=== PATIENT | female | born 1965 | race Caucasian/White ===

== ENCOUNTER → 2018-06-18 | Outpatient (CLI) | payer OTHER ==
--- NOTE | 2018-06-18 12:37 | XR ---
EXAMINATION TYPE: XR foot complete LT DATE OF EXAM: 06/18/2018 CLINICAL HISTORY: Lateral left foot pain after twisting injury days ago. TECHNIQUE: Frontal, lateral, and oblique images of the left foot are obtained. COMPARISON: None FINDINGS: There is no acute fracture/dislocation evident in the left foot. The joint spaces in the left foot appear within normal limits. The overlying soft tissue appears unremarkable. IMPRESSION: There is no acute fracture or dislocation in the left foot.
== END | disposition home or self-care (01) ==
LOC: RADXRMAIN 12:06
PROVIDERS: ATTEND Emergency Medicine
DX: S93.602A Unspecified sprain of left foot, initial encounter (principal)

== ENCOUNTER 2021-11-22 06:06 | Emergency (ER) | payer BC, OTHER ==
[2021-11-22 06:14] VITALS: TEMP 97.9
[2021-11-22 06:16] LABS: Glucose,Whole Blood 193 mg/dL (75-99)
[2021-11-22] MEDS ORDERED: SODIUM CHLORIDE 0.9% 1,000 ML IV STA (06:19)
--- NOTE | 2021-11-22 06:22 | ED ---
Syncope HPI - General Chief Complaint: Syncope Stated Complaint: Syncope Time Seen by Provider: 11/22/21 06:18 Source: patient, EMS Mode of arrival: EMS Limitations: altered mental status - History of Present Illness Initial Comments: This patient is a 56-year-old woman brought by ambulance after she was found unresponsive by her family. EMS was called after patient was found lying on the floor and unresponsive. The patient's family reportedly had did brief period of CPR. When EMS arrived they did find the patient to be breathing and have pulses. On arrival here, the patient is alert and responsive but does not remember what had happened prior to her arrival here. The last admission clearly Remmers his last night. The patient is denying symptoms currently. She is not having headache, neck pain, chest, back or abdomen pain. No dyspnea. No nausea or vomiting. MD Complaint: loss of consciousness -: minutes(s) Prodromal Symptoms: none Witnessed: no Injuries Sustained Associated with Event: None Current Symptoms: back to baseline Context: other Treatments Prior to Arrival: CPR - Related Data Home Medications Medication Instructions Recorded Confirmed No Known Home Medications 11/22/21 11/22/21 Allergies Allergy/AdvReac Type Severity Reaction Status Date / Time No Known Allergies Allergy Verified 11/22/21 07:19 Review of Systems ROS Statement: Those systems with pertinent positive or pertinent negative responses have been documented in the HPI. ROS Other: All systems not noted in ROS Statement are negative. Limitations: ROS unobtainable due to patients medical condition Constitutional: Denies: fever Respiratory: Denies: cough, dyspnea Cardiovascular: Reports: syncope. Denies: chest pain Gastrointestinal: Denies: abdominal pain, nausea, vomiting Musculoskeletal: Denies: back pain Neurological: Reports: confusion. Denies: headache, weakness Past Medical History Past Medical History: No Reported History History of Any Multi-Drug Resistant Organisms: None Reported Additional Past Surgical History / Comment(s): Mary Lou walters. Smoking Status: Current every day smoker Past Alcohol Use History: None Reported Past Drug Use History: None Reported General Exam General appearance: alert, in no apparent distress Head exam: Present: atraumatic, normocephalic, normal inspection Eye exam: Present: normal appearance, PERRL, EOMI. Absent: scleral icterus, conjunctival injection, nystagmus ENT exam: Present: normal oropharynx Neck exam: Present: normal inspection, full ROM Respiratory exam: Present: normal lung sounds bilaterally. Absent: respiratory distress, wheezes, rales, rhonchi, stridor Cardiovascular Exam: Present: regular rate, normal rhythm, normal heart sounds. Absent: systolic murmur, diastolic murmur, rubs, gallop GI/Abdominal exam: Present: soft. Absent: distended, tenderness, guarding, rebound, rigid, mass Extremities exam: Present: normal inspection, normal capillary refill. Absent: pedal edema, calf tenderness Back exam: Present: normal inspection. Absent: CVA tenderness (R), CVA tenderness (L), vertebral tenderness Neurological exam: Present: alert, CN II-XII intact. Absent: oriented X3 (Patient is oriented to person, recognizes she is at the hospital but could not recall the date.), motor sensory deficit Skin exam: Present: warm, dry, intact, normal color. Absent: rash Course Vital Signs 11/22/21 11/22/21 11/22/21 06:08 06:35 07:00 Temperature 97.9 F Pulse Rate 80 70 75 Respiratory 18 12 13 Rate Blood Pressure 96/56 93/56 101/55 O2 Sat by Pulse 99 100 Oximetry 11/22/21 11/22/21 07:10 08:08 Temperature Pulse Rate 75 55 L Respiratory 13 16 Rate Blood Pressure 101/55 93/54 O2 Sat by Pulse 100 96 Oximetry EKG Findings - EKG Results: EKG: interpreted by DESTINEY, sinus rhythm (79 bpm), normal axis, normal ST/T - Blocks, [place], Hypertrophy, ST Abn: AV and intraventricular conduction: left bundle branch block (fixed/intermittent, complete/incomplete) Medical Decision Making - Medical Decision Making Patient is 56-year-old woman brought for suspected syncopal episode at home. Patient is found to have subarachnoid hemorrhage. Discussed with patient that she must be transferred to facility with neurosurgery available and she is agreeable with this plan. Case discussed with Dr. De La Cruz at [facility] who will accept transfer. - Lab Data Result diagrams: 11/22/21 06:19 11/22/21 06:19 Lab Results 11/22/21 11/22/21 11/22/21 Range/Units 06:15 06:19 06:19 WBC 6.7 (3.8-10.6) k/uL RBC 4.47 (3.80-5.40) m/uL Hgb 14.3 (11.4-16.0) gm/dL Hct 43.6 (34.0-46.0) % MCV 97.4 (80.0-100.0) fL MCH 32.0 (25.0-35.0) pg MCHC 32.9 (31.0-37.0) g/dL RDW 12.1 (11.5-15.5) % Plt Count 303 (150-450) k/uL MPV 8.2 Neutrophils % 61 % Lymphocytes % 30 % Monocytes % 4 % Eosinophils % 3 % Basophils % 0 % Neutrophils # 4.1 (1.3-7.7) k/uL Lymphocytes # 2.0 (1.0-4.8) k/uL Monocytes # 0.3 (0-1.0) k/uL Eosinophils # 0.2 (0-0.7) k/uL Basophils # 0.0 (0-0.2) k/uL PT 11.1 (9.0-12.0) sec INR 1.0 (<1.2) APTT 23.0 (22.0-30.0) sec D-Dimer 1.61 H (<0.60) mg/L FEU Sodium (137-145) mmol/L Potassium (3.5-5.1) mmol/L Chloride (98-107) mmol/L Carbon Dioxide (22-30) mmol/L Anion Gap mmol/L BUN (7-17) mg/dL Creatinine (0.52-1.04) mg/dL Est GFR (CKD-EPI)AfAm (>60 ml/min/1.73 sqM) Est GFR (CKD-EPI)NonAf (>60 ml/min/1.73 sqM) Glucose (74-99) mg/dL POC Glucose (mg/dL) 193 H (75-99) mg/dL POC Glu Registered Art Therapist ID Gerardo Roldan Calcium (8.4-10.2) mg/dL Magnesium (1.6-2.3) mg/dL Total Bilirubin (0.2-1.3) mg/dL AST (14-36) U/L ALT (4-34) U/L Alkaline Phosphatase (38-126) U/L Troponin I (0.000-0.034) ng/mL Total Protein (6.3-8.2) g/dL Albumin (3.5-5.0) g/dL Urine Color Urine Appearance (Clear) Urine pH (5.0-8.0) Ur Specific [place] (1.001-1.035) Urine Protein (Negative) Urine Glucose (UA) (Negative) Urine Ketones (Negative) Urine Blood (Negative) Urine Nitrite (Negative) Urine Bilirubin (Negative) Urine Urobilinogen (<2.0) mg/dL Ur Leukocyte Esterase (Negative) Urine RBC (0-5) /hpf Urine WBC (0-5) /hpf Urine Mucus (None) /hpf Coronavirus (PCR) (Not Detectd) 11/22/21 11/22/21 11/22/21 Range/Units 06:19 06:19 06:19 WBC (3.8-10.6) k/uL RBC (3.80-5.40) m/uL Hgb (11.4-16.0) gm/dL Hct (34.0-46.0) % MCV (80.0-100.0) fL MCH (25.0-35.0) pg MCHC (31.0-37.0) g/dL RDW (11.5-15.5) % Plt Count (150-450) k/uL MPV Neutrophils % % Lymphocytes % % Monocytes % % Eosinophils % % Basophils % % Neutrophils # (1.3-7.7) k/uL Lymphocytes # (1.0-4.8) k/uL Monocytes # (0-1.0) k/uL Eosinophils # (0-0.7) k/uL Basophils # (0-0.2) k/uL PT (9.0-12.0) sec INR (<1.2) APTT (22.0-30.0) sec D-Dimer (<0.60) mg/L FEU Sodium 140 (137-145) mmol/L Potassium 4.8 (3.5-5.1) mmol/L Chloride 113 H (98-107) mmol/L Carbon Dioxide 19 L (22-30) mmol/L Anion Gap 8 mmol/L BUN 20 H (7-17) mg/dL Creatinine 0.83 (0.52-1.04) mg/dL Est GFR (CKD-EPI)AfAm >90 (>60 ml/min/1.73 sqM) Est GFR (CKD-EPI)NonAf 78 (>60 ml/min/1.73 sqM) Glucose 207 H (74-99) mg/dL POC Glucose (mg/dL) (75-99) mg/dL POC Glu Registered Art Therapist ID Calcium 8.4 (8.4-10.2) mg/dL Magnesium 2.0 (1.6-2.3) mg/dL Total Bilirubin 0.8 (0.2-1.3) mg/dL AST 45 H (14-36) U/L ALT 33 (4-34) U/L Alkaline Phosphatase 60 (38-126) U/L Troponin I <0.012 (0.000-0.034) ng/mL Total Protein 6.4 (6.3-8.2) g/dL Albumin 3.4 L (3.5-5.0) g/dL Urine Color Light Yellow Urine Appearance Clear (Clear) Urine pH 5.0 (5.0-8.0) Ur Specific [place] 1.039 H (1.001-1.035) Urine Protein 1+ H (Negative) Urine Glucose (UA) 4+ H (Negative) Urine Ketones Negative (Negative) Urine Blood Trace H (Negative) Urine Nitrite Negative (Negative) Urine Bilirubin Negative (Negative) Urine Urobilinogen <2.0 (<2.0) mg/dL Ur Leukocyte Esterase Negative (Negative) Urine RBC 1 (0-5) /hpf Urine WBC 1 (0-5) /hpf Urine Mucus Rare H (None) /hpf Coronavirus (PCR) (Not Detectd) 11/22/21 Range/Units 06:57 WBC (3.8-10.6) k/uL RBC (3.80-5.40) m/uL Hgb (11.4-16.0) gm/dL Hct (34.0-46.0) % MCV (80.0-100.0) fL MCH (25.0-35.0) pg MCHC (31.0-37.0) g/dL RDW (11.5-15.5) % Plt Count (150-450) k/uL MPV Neutrophils % % Lymphocytes % % Monocytes % % Eosinophils % % Basophils % % Neutrophils # (1.3-7.7) k/uL Lymphocytes # (1.0-4.8) k/uL Monocytes # (0-1.0) k/uL Eosinophils # (0-0.7) k/uL Basophils # (0-0.2) k/uL PT (9.0-12.0) sec INR (<1.2) APTT (22.0-30.0) sec D-Dimer (<0.60) mg/L FEU Sodium (137-145) mmol/L Potassium (3.5-5.1) mmol/L Chloride (98-107) mmol/L Carbon Dioxide (22-30) mmol/L Anion Gap mmol/L BUN (7-17) mg/dL Creatinine (0.52-1.04) mg/dL Est GFR (CKD-EPI)AfAm (>60 ml/min/1.73 sqM) Est GFR (CKD-EPI)NonAf (>60 ml/min/1.73 sqM) Glucose (74-99) mg/dL POC Glucose (mg/dL) (75-99) mg/dL POC Glu Registered Art Therapist ID Calcium (8.4-10.2) mg/dL Magnesium (1.6-2.3) mg/dL Total Bilirubin (0.2-1.3) mg/dL AST (14-36) U/L ALT (4-34) U/L Alkaline Phosphatase (38-126) U/L Troponin I (0.000-0.034) ng/mL Total Protein (6.3-8.2) g/dL Albumin (3.5-5.0) g/dL Urine Color Urine Appearance (Clear) Urine pH (5.0-8.0) Ur Specific [place] (1.001-1.035) Urine Protein (Negative) Urine Glucose (UA) (Negative) Urine Ketones (Negative) Urine Blood (Negative) Urine Nitrite (Negative) Urine Bilirubin (Negative) Urine Urobilinogen (<2.0) mg/dL Ur Leukocyte Esterase (Negative) Urine RBC (0-5) /hpf Urine WBC (0-5) /hpf Urine Mucus (None) /hpf Coronavirus (PCR) Not Detected (Not Detectd) Critical Care Time Critical Care Time: Yes (30 minutes) Disposition Clinical Impression: Subarachnoid hemorrhage Disposition: OTHER INSTITUTION NOT DEFINED Condition: Serious Is patient prescribed a controlled substance at d/c from ED?: No Referrals: None,Stated [Primary Care Provider] - 1-2 days - Out of Hospital Transfer - Req. Specs Out of Hospital Transfer - Requested Specifics: Other Emergency Center ([facility])
[2021-11-22 06:32] LABS: Basophils % (A) 0 %; Eosinophils # (A) 0.2 k/uL (0-0.7); Eosinophils % (A) 3 %; HCT 43.6 % (34.0-46.0); HGB 14.3 gm/dL (11.4-16.0); Lymphocytes % (A) 30 %; MCHC 32.9 g/dL (31.0-37.0); MCV 97.4 fL (80.0-100.0); Mean Platelet Volume 8.2; Monocytes # (A) 0.3 k/uL (0-1.0); Monocytes % (A) 4 %; Neutrophils # (A) 4.1 k/uL (1.3-7.7); Neutrophils % (A) 61 %; Platelet Count 303 k/uL (150-450); RBC 4.47 m/uL (3.80-5.40); RDW 12.1 % (11.5-15.5); WBC 6.7 k/uL (3.8-10.6)
--- NOTE | 2021-11-22 06:42 | CT ---
EXAMINATION TYPE: CT brain wo con DATE OF EXAM: 11/22/2021 COMPARISON: None HISTORY: syncope CT DLP: 1055.4 mGycm Automated exposure control for dose reduction was used. Images of the brain obtained without contrast. There is large amount of acute subarachnoid hemorrhage at the [place] and also extending int o the sylvian fissures bilaterally. There is small amount of hemorrhage in the fourth ventricle. Ther e is hemorrhage around the brainstem and outlining the cerebral peduncles. There is some fullness of the temporal horns of the lateral ventricles. The calvarium is intact. IMPRESSION: There is large amount of acute subarachnoid hemorrhage as above. Origin of the hemorrhage is not jim r. There is more concentrated hemorrhage at the left anterior [place] and also the basilar t ip. There is some minimal hydrocephalus and prominence of the temporal horns of the lateral ventricles. M inimal hemorrhage in the fourth ventricle. This exam was discussed with emergency room staff at 6:40 AM.
--- NOTE | 2021-11-22 06:43 | XR ---
EXAMINATION TYPE: XR chest 1V portable DATE OF EXAM: 11/22/2021 COMPARISON: NONE HISTORY: Syncope TECHNIQUE: Single view FINDINGS: Heart is normal. Lungs are clear of consolidation. There are no hilar masses. Costophrenic angles are clear. There are chest leads. Bony thorax is intact IMPRESSION: No active cardiopulmonary disease.
[2021-11-22 06:50] LABS: Prothrombin Time 11.1 sec (9.0-12.0)
[2021-11-22 07:00] LABS: ALT 33 U/L (4-34); AST 45 U/L (14-36); African American GFR (CKD) >90 (>60 ml/min/1.73 sqM); Albumin 3.4 g/dL (3.5-5.0); Alkaline Phosphatase 60 U/L (38-126); Anion Gap 8 mmol/L; Blood Urea Nitrogen 20 mg/dL (7-17); Calcium 8.4 mg/dL (8.4-10.2); Carbon Dioxide 19 mmol/L (22-30); Chloride 113 mmol/L (98-107); Glucose 207 mg/dL (74-99); Non-African American GFR(CKD) 78 (>60 ml/min/1.73 sqM); Sodium 140 mmol/L (137-145); Total Bilirubin 0.8 mg/dL (0.2-1.3); Total Protein 6.4 g/dL (6.3-8.2)
[2021-11-22 07:04] LABS: Potassium 4.8 mmol/L (3.5-5.1)
--- NOTE | 2021-11-22 07:09 | CT ---
EXAMINATION TYPE: CT angio COW [place] DATE OF EXAM: 11/22/2021 COMPARISON: None HISTORY: Abn CT brain, syncope CT DLP: 718 mGycm Automated exposure control for dose reduction was used. CONTRAST: Performed with IV Contrast, patient injected with 100 mL of Isovue 370. Images obtained from the skull base to the vertex of the brain without IV contrast. There are Three-D postprocessed images. There is arterial flow in the anterior middle and posterior cerebral arteries. There is arterial flow in the vertebrobasilar artery system. There is rounded 16 x 10 mm enhancing mass at the [place] on the left side. 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 Th ere is minimal calcification in the wall. There is no evidence of intracranial arterial stenosis. The re is normal enhancement of the venous sinuses. 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
[2021-11-22 07:32] LABS: Appearance,Urine Clear (Clear); Bilirubin,Urine Negative (Negative); Blood,Urine Trace (Negative); Color,Urine Light Yellow; Glucose,Urine (UA) 4+ (Negative); Ketones,Urine Negative (Negative); Leukocyte Esterase,Urine Negative (Negative); Mucus,Urine Rare /hpf; Nitrite,Urine Negative (Negative); Protein,Urine 1+ (Negative); RBC,Urine 1 /hpf (0-5); Specific Gravity,Urine 1.039 (1.001-1.035); Urobilinogen,Urine <2.0 mg/dL (<2.0); WBC,Urine 1 /hpf (0-5)
[2021-11-22] MEDS ORDERED: fentaNYL (PF) 50 MCG/ML 2 ML AMP IVP STA (07:52)
[2021-11-22 08:11] VITALS: BP 93/54; PULSE 55; RESP 16
== END 2021-11-22 08:12 | disposition short-term general hospital (02) ==
LOC: EC 06:06
DX: I60.9 Nontraumatic subarachnoid hemorrhage, unspecified (principal); F17.200 Nicotine dependence, unspecified, uncomplicated; Z20.822 Contact with and (suspected) exposure to COVID-19
CPT/HCPCS: 99291; 96374; 36415; 93005; 85379; 80053; 83735; 84484; 85025; 85610; 85730; 81001; 87635; 71045; 70496; 70450; J3010; Q9967

== ENCOUNTER 2022-06-27 15:54 | Emergency (ER) | payer BC ==
[2022-06-27 16:20] VITALS: RESP 16; TEMP 98.7
--- NOTE | 2022-06-27 16:58 | ED ---
General Adult HPI - General Chief complaint: Abdominal Pain Stated complaint: Peg Tube replacement Time Seen by Provider: 06/27/22 16:14 Source: EMS, RN notes reviewed, old records reviewed Mode of arrival: EMS Limitations: language barrier, physical limitation - History of Present Illness Initial comments: 57-year-old female presenting with peg tube issue. Patient had been sent to the emergency department with a cracked PEG tube. Uncertain of the duration. Patient is nonverbal and unable to contribute to the history. By review the medical record. Patient does have a previous history of subarachnoid hemorrhage. This was in November of this year. - Related Data Home Medications Medication Instructions Recorded Confirmed No Known Home Medications 11/22/21 11/22/21 Allergies Allergy/AdvReac Type Severity Reaction Status Date / Time No Known Allergies Allergy Verified 11/22/21 07:19 Review of Systems ROS Statement: Those systems with pertinent positive or pertinent negative responses have been documented in the HPI. ROS Other: All systems not noted in ROS Statement are negative. Past Medical History Past Medical History: No Reported History History of Any Multi-Drug Resistant Organisms: None Reported Additional Past Surgical History / Comment(s): Mary Lou walters. Smoking Status: Current every day smoker Past Alcohol Use History: None Reported Past Drug Use History: None Reported General Exam Limitations: language barrier, physical limitation General appearance: alert Head exam: Present: normocephalic Eye exam: Present: normal appearance Neck exam: Absent: tenderness Respiratory exam: Present: normal lung sounds bilaterally. Absent: respiratory distress, wheezes Cardiovascular Exam: Present: regular rate, normal rhythm GI/Abdominal exam: Present: soft, other (No erythema surrounding the ostomy no tenderness, the PEG tube is cracked along its length). Absent: distended, tenderness Neurological exam: Absent: oriented X3 Skin exam: Present: warm, dry, intact Course Vital Signs 06/27/22 16:15 Temperature 98.7 F Pulse Rate 85 Respiratory 16 Rate Blood Pressure 110/73 O2 Sat by Pulse 95 Oximetry Procedures - Feeding Tube Replacement Reason for Replacement: not functioning/damaged Initial Tube Inserted: greater than 2 weeks Type of Tube: gastrostomy Use of Tube: medications and feeding Insertion Site Prior to Procedure: clean Tube Used for Reinsertion: other (replaced) Vincentian Tube Size (F): 18 Balloon Size (mls): 10 Verification of Placement: gastrografin injection Tube Secured by: tape/dressing Patient Tolerated Procedure: well Medical Decision Making - Medical Decision Making 57-year-old female with a cracked PEG tube. Tube appears quite old. It is removed in the emergency department replaced with a 18-Vincentian gastric tube, x- ray to confirm placement. Disposition Clinical Impression: PEG tube malfunction Disposition: HOME SELF-CARE Condition: Fair Instructions (If sedation given, give patient instructions): PEG Tube Insertion (DC) Is patient prescribed a controlled substance at d/c from ED?: No Referrals: None,Stated [REFERRING] - 1-2 days Time of Disposition: 17:51
--- NOTE | 2022-06-27 17:58 | XR ---
EXAMINATION TYPE: XR KUB DATE OF EXAM: 06/27/2022 COMPARISON: NONE HISTORY: Check tube placement TECHNIQUE: Single view FINDINGS: Contrast was injected 50 mL Isovue into the gastrostomy tube. There is opacification of the stomach. No evidence of extravasation. Bowel gas pattern is nonacute. IMPRESSION: Gastrostomy tube is in good position.
--- NOTE | 2022-06-27 18:00 | XR ---
EXAMINATION TYPE: XR KUB DATE OF EXAM: 06/27/2022 COMPARISON: NONE HISTORY: Check tube placement TECHNIQUE: Single view FINDINGS: There is a gastrostomy tube over the greater curvature of the stomach. There is no contrast for verification. IMPRESSION: Nonacute bowel gas pattern. Gastrostomy tube is overlying the greater curvature of the st omach.
[2022-06-27 18:56] VITALS: BP 126/77; PULSE 92
== END 2022-06-27 19:58 | disposition home or self-care (01) ==
LOC: EC 15:54
DX: K94.23 Gastrostomy malfunction (principal); F17.200 Nicotine dependence, unspecified, uncomplicated
CPT/HCPCS: 74018; 43753; 99283; Q9967

== ENCOUNTER 2022-12-03 07:01 | Emergency (ER) | payer BC, OTHER ==
[2022-12-03 07:15] VITALS: RESP 18; TEMP 97.1
--- NOTE | 2022-12-03 08:10 | ED ---
Recheck HPI - General Chief Complaint: Recheck/Abnormal Lab/Rx Stated Complaint: PEG tube issues Time Seen by Provider: 12/03/22 07:10 Source: EMS, RN notes reviewed, old records reviewed (Records from [facility]) Mode of arrival: EMS Limitations: altered mental status, physical limitation - History of Present Illness Initial Comments: Patient is a 57-year-old female presenting to the emergency room via EMS from [facility] for evaluation and treatment of PEG tube leakage. Documentation from retirement states "PEG tube leakage" without any details of how long or where leakage is from. Upon exam no drainage or leakage noted around insertion site. Leakage noted from it to being along with catheter tip insertion damage. Patient has had a PEG tube for some time (greater than 2 weeks) and receives total care after subarachnoid hemorrhage left her with multiple neurological deficits. She has no evidence of pain or fever. Records indicate a syncopal event requiring CPR in November 2021 at which time she was identified with the subarachnoid hemorrhage. She has no other significant past medical history on file. - Related Data Home Medications Medication Instructions Recorded Confirmed No Known Home Medications 11/22/21 11/22/21 Allergies Allergy/AdvReac Type Severity Reaction Status Date / Time No Known Allergies Allergy Verified 12/03/22 07:08 Review of Systems ROS Statement: Those systems with pertinent positive or pertinent negative responses have been documented in the HPI. ROS Other: All systems not noted in ROS Statement are negative. Past Medical History Additional Past Medical History / Comment(s): Subarachnoid bleed. PEG tube History of Any Multi-Drug Resistant Organisms: None Reported Additional Past Surgical History / Comment(s): L hip sugery. brain bleed Smoking Status: Former smoker Past Alcohol Use History: None Reported Past Drug Use History: None Reported General Exam - General Exam Comments Initial Comments: GENERAL: No acute distress, well developed, well nourished. HEENT: Helmet intact. Pupils equal, round, reactive to light. Moist mucous membranes. LUNGS: No respiratory distress. Clear to auscultation, no adventitious sounds, no use of accessory muscles. HEART: Regular rate and rhythm without murmur, rub, or gallop. ABDOMEN: Abdomen soft normal bowel sounds. PEG tube insertion site with no reading or discharge. PEG tube with multiple cracks and tears and tubing noted. EXTREMITIES: No edema. No tenderness. Moves all extremities. NEUROLOGIC: Alert. Non verbal, responds to painful stimuli. PSYCHIATRIC: Flat affect and behavior. DERMATOLOGIC: Skin intact, without rashes or lesions noted. Limitations: altered mental status, physical limitation Course Vital Signs 12/03/22 12/03/22 07:09 08:29 Temperature 97.1 F L Pulse Rate 109 H 80 Respiratory 18 18 Rate Blood Pressure 138/91 132/78 O2 Sat by Pulse 97 100 Oximetry Procedures - Feeding Tube Replacement Reason for Replacement: not functioning/damaged Initial Tube Inserted: greater than 2 weeks Type of Tube: gastrostomy Use of Tube: medications and feeding Insertion Site Prior to Procedure: clean Tube Used for Reinsertion: other (AIRAM Bolus G-tube) Latvian Tube Size (F): 18 Balloon Size (mls): 8 Verification of Placement: gastrografin injection Tube Secured by: tape/dressing Patient Tolerated Procedure: well, no complications Medical Decision Making - Medical Decision Making Was pt. sent in by a medical professional or institution (, PA, FUR SCRAPER, urgent care, hospital, or retirement...) When possible be specific @ -[facility] Did you speak to anyone other than the patient for history (EMS, parent, family, police, friend...)? What history was obtained from this source @ -No Did you review nursing and triage notes (agree or disagree)? Why? @ -I reviewed and agree with nursing and triage notes Were old charts reviewed (outside hosp., previous admission, EMS record, old EKG, old radiological studies, urgent care reports/EKG's, retirement records)? Report findings @ -No old charts were reviewed Differential Diagnosis (chest pain, altered mental status, abdominal pain women, abdominal pain men, vaginal bleeding, weakness, fever, dyspnea, syncope, headache, dizziness, GI bleed, back pain, seizure, CVA, palpatations, mental health)? @ -not applicable EKG interpreted by me (3pts min.). @ -None done X-rays interpreted by me (1pt min.). @ -X-ray of the abdomen with contrast injected through PEG tube reveals contrast in the stomach and duodenum confirming good placement of PEG tube. CT interpreted by me (1pt min.). @ -None done U/S interpreted by me (1pt. min.). @ -None done What testing was considered but not performed or refused? (CT, X-rays, U/S, labs)? Why? @ -None What meds were considered but not given or refused? Why? @ -None Did you discuss the management of the patient with other professionals (professionals i.e. , PA, FUR SCRAPER, lab, RT, psych nurse, social work case manager, modeler, teacher, freedom of information officer, case folder)? Give summary @ -No Was smoking cessation discussed for >3mins.? @ -No Was critical care preformed (if so, how long)? @ -No Were there social determinants of health that impacted care today? How? (Homelessness, low income, unemployed, alcoholism, drug addiction, transportation, low edu. Level, literacy, decrease access to med. care, [facility], rehab)? @ -No Was there de-escalation of care discussed even if they declined (Discuss DNR or withdrawal of care, Hospice)? DNR status @ -No What co-morbidities impacted this encounter? (DM, HTN, Smoking, COPD, CAD, Cancer, CVA, ARF, Chemo, Hep., AIDS, mental health diagnosis, sleep apnea, morbid obesity)? @ -None Was patient admitted / discharged? Hospital course, mention meds given and route, prescriptions, significant lab abnormalities, going to OR and other pertinent info. @ -57-year-old female brought to the emergency room by EMS from [facility] with complaints of PEG tube leakage. Assessment of PEG tube found no leakage around insertion site however to with multiple tears and leakage noted when attempting to push fluids. Will replace PEG tube with new 18- gauge Latvian through present tract. Old PEG tube removed and new PEG tube inserted without complication. X-ray confirmation of placement obtained confirming placement. No indication for further diagnostic imaging testing or assessment. Will discharge back to [facility] in stable condition with PEG tube in place and ability to give medications and feedings through PEG tube. Undiagnosed new problem with uncertain prognosis? @ -No Drug Therapy requiring intensive monitoring for toxicity (Heparin, Nitro, Insulin, Cardizem)? @ -No Were any procedures done? @ -PEG tube removal and insertion. Diagnosis/symptom? @ -PEG tube malfunction Acute, or Chronic, or Acute on Chronic? @ -Acute Uncomplicated (without systemic symptoms) or Complicated (systemic symptoms)? @ -Uncomplicated Side effects of treatment? @ -No Exacerbation, Progression, or Severe Exacerbation? @ -No Poses a threat to life or bodily function? How? (Chest pain, USA, SD, pneumonia, PE, COPD, DKA, ARF, appy, cholecystitis, CVA, Diverticulitis, Homicidal, Suicidal, threat to staff... and all critical care pts) @ -No Case discussed with Dr. Nguyen. - Radiology Data Radiology results: report reviewed, image reviewed Disposition Clinical Impression: Leaking PEG tube Disposition: HOME SELF-CARE Condition: Stable Instructions (If sedation given, give patient instructions): PEG Tube Insertion (DC) Additional Instructions: PEG tube was exchanged today without complications. Please continue localized PEG tube care may utilize for medication and food administration. Please return to the Emergency Department if symptoms worsen or any other concerns. Is patient prescribed a controlled substance at d/c from ED?: No Referrals: Rene More DO [Primary Care Provider] - 1-2 days Time of Disposition: 08:10
--- NOTE | 2022-12-03 08:10 | XR ---
EXAMINATION TYPE: XR abdomen 1V DATE OF EXAM: 12/03/2022 CLINICAL HISTORY: PEG tube placement TECHNIQUE: Single supine AP portable image of the abdomen was obtained COMPARISON: 06/27/2022 FINDINGS: Contrast injected through the PEG tube demonstrates appropriate placement within the gastri c body. Contrast filled stomach and proximal duodenum. There is a moderate amount of stool within the colon. Bowel gas pattern is nonobstructive. No acute osseous abnormalities. Lung bases are clear.. IMPRESSION: Well-positioned gastrostomy tube.
[2022-12-03 08:32] VITALS: BP 132/78; PULSE 80
== END 2022-12-03 08:32 | disposition home or self-care (01) ==
LOC: EC 07:01 → EEVIPCON 07:01 → EC 08:32
DX: K94.23 Gastrostomy malfunction (principal); Z87.891 Personal history of nicotine dependence
CPT/HCPCS: 99284; 43762; 74018; Q9967